=== PATIENT | female | born 1980 | race African-American/Black ===

== ENCOUNTER 2018-06-14 13:51 | Inpatient (IN) | payer OTHER, MEDICAID ==
[~2018-06-14] VITALS: Ht 163.8 cm; Wt 71.7 kg
[2018-06-14] MEDS ORDERED: ACETAMINOPHEN 325MG TABLET PO STA (15:40)
[2018-06-14] MEDS ORDERED: MORPHINE SULFATE 4 MG/ML CPJ (NOT FOR IM USE) IV STA (15:40)
[2018-06-14] MEDS ORDERED: CLINDAMYCIN 600 MG in DEXTROSE 5% WATER 50 ML IV ONE (15:45)
[2018-06-14 16:14] LABS: CHLORIDE 103 mEq/L (98-107)
[2018-06-14 16:23] LABS: MEAN CORPUSCULAR HEMOGLOBIN 16.5 pg (28.0-32.0); MEAN CORPUSCULAR VOLUME 54.9 fL (81.0-99.0); MEAN PLATELET VOLUME 8.5 fl (7.4-10.4); PARTIAL THROMBOPLASTIN TIME 36.1 sec (23.4-31.0); PLATELET 372 x1000/uL (130-400); PROTHROMBIN TIME 10.7 sec (9.6-11.0); RED CELL DISTRIBUTION WIDTH 21.9 % (11.6-14.6)
[2018-06-14 16:30] LABS: HEMATOCRIT. 20.3 % (36.0-48.0); HEMOGLOBIN. 6.1 g/dL (12.0-16.0)
[2018-06-14 16:46] LABS: PLATELET ESTIMATE NORMAL
[2018-06-14] MEDS ORDERED: ENOXAPARIN 80MG/0.8ML SYR SUBCUT NR (17:30)
[2018-06-14 18:02] LABS: CLARITY URINE CLOUDY (CLEAR); KETONES URINE 1+ (NEGATIVE); LEUKOCYTE ESTERASE URINE NEGATIVE (NEGATIVE); NITRITE URINE NEGATIVE (NEGATIVE); OCCULT BLOOD URINE TRACE (NEGATIVE); PROTEIN URINE 3+ (NEGATIVE); SPECIFIC GRAVITY URINE 1.028 (1.005-1.030)
[2018-06-14 18:03] LABS: COLOR URINE YELLOW (YELLOW)
[2018-06-14] MEDS ORDERED: ACETAMINOPHEN 325MG TABLET PO ONE (21:30)
[2018-06-14 23:41] VITALS: BP 123/72
[2018-06-15] VITALS (7 sets, daily range): BP systolic 104–130; BP diastolic 55–74
[2018-06-15] MEDS ORDERED: CLONIDINE 0.1MG TABLET PO PRN
[2018-06-15] MEDS ORDERED: ONDANSETRON HCL 4MG/2ML INJ IV PRN
[2018-06-15] MEDS ORDERED: LORAZEPAM 2MG/ML CPJ IV PRN
[2018-06-15] MEDS: HYDROCODONE/ACETAMINOPHEN 5/325MG TABLET PO PRN ×2 (00:23→09:16)
[2018-06-15 00:41] LABS: HEMATOCRIT 22.6 % (36.0-48.0)
[2018-06-15 00:44] LABS: HEMOGLOBIN 6.8 g/dL (12.0-16.0)
[2018-06-15 00:46] LABS: INR 1.1; PROTHROMBIN TIME 11.1 sec (9.6-11.0)
[2018-06-15] MEDS: THIAMINE HCL 100MG TABLET PO SCH ×2 (00:58→09:15)
[2018-06-15] MEDS: POTASSIUM CHLORIDE 20MEQ TABLET SR PO SCH ×2 (00:58→09:15)
[2018-06-15] MEDS ORDERED: VANCOMYCIN 1 G PREMIX 200 ML IV SCH ×2 (02:00)
[2018-06-15] MEDS ORDERED: NON FORMULARY PATIENT HOME MED PO PRN ×2 (05:00)
[2018-06-15] MEDS: ENOXAPARIN 80MG/0.8ML SYR SUBCUT SCH ×2 (05:08→18:17)
[2018-06-15] MEDS: ACETAMINOPHEN 325MG TABLET PO PRN ×4 (05:11→23:46)
[2018-06-15] MEDS ORDERED: ENOXAPARIN 40MG/0.4ML SYR SUBCUT SCH (09:00)
[2018-06-15] MEDS: FOLIC ACID 1MG TABLET PO SCH (09:15)
[2018-06-15] MEDS: FUROSEMIDE 40MG/4ML VIAL IV SCH ×2 (09:15→21:03)
[2018-06-15 11:46] LABS: UCG SCREEN NEGATIVE
[2018-06-15] MEDS ORDERED: INFLUENZA VIRUS VACCINE(AFLURIA) 0.5ML SYR IM ONE (12:00)
[2018-06-15 12:22] LABS: CHLORIDE 103 mEq/L (98-107)
[2018-06-15 12:27] LABS: TOTAL IRON BINDING CAPACITY 302 ug/dL (250-450)
[2018-06-15] MEDS: MORPHINE SULFATE 4 MG/ML CPJ (NOT FOR IM USE) IV PRN ×3 (13:22→23:47)
[2018-06-15] MEDS: NAFCILLIN SODIUM 1,000 MG in SODIUM CHLORIDE 0.9% 50 ML IV SCH ×3 (13:54→23:36)
[2018-06-15] MEDS ORDERED: IOHEXOL-300 100 ML BOTTLE ONE (14:39)
[2018-06-16] MEDS: THROAT LOZENGES-BENZOCAINE/MENTH/CETYLPYRD CL LOZENGES MM PRN (00:16)
[2018-06-16 04:00] VITALS: BP 106/70
[2018-06-16] MEDS: MORPHINE SULFATE 4 MG/ML CPJ (NOT FOR IM USE) IV PRN ×2 (04:07→12:44)
[2018-06-16] MEDS: ENOXAPARIN 80MG/0.8ML SYR SUBCUT SCH (05:46)
[2018-06-16] MEDS: NAFCILLIN SODIUM 1,000 MG in SODIUM CHLORIDE 0.9% 50 ML IV SCH (05:46)
[2018-06-16 06:26] LABS: HCG SCREEN NEGATIVE; HEMATOCRIT. 21.8 % (36.0-48.0); MEAN CORPUSCULAR HEMOGLOBIN 17.6 pg (28.0-32.0); MEAN CORPUSCULAR VOLUME 57.5 fL (81.0-99.0); MEAN PLATELET VOLUME 8.5 fl (7.4-10.4); PLATELET 374 x1000/uL (130-400); RED BLOOD CELL COUNT 3.78 mill/uL (4.2-5.4); RED CELL DISTRIBUTION WIDTH 24.6 % (11.6-14.6)
[2018-06-16 06:29] LABS: CHLORIDE 100 mEq/L (98-107)
[2018-06-16 06:40] LABS: HEMOGLOBIN. 6.7 g/dL (12.0-16.0)
[2018-06-16 08:00] VITALS: BP 112/69
[2018-06-16] MEDS ORDERED: POTASSIUM CHLORIDE 20MEQ TABLET SR PO SCH (09:00)
[2018-06-16] MEDS: FUROSEMIDE 40MG/4ML VIAL IV SCH (09:02)
[2018-06-16] MEDS: FOLIC ACID 1MG TABLET PO SCH (09:03)
[2018-06-16] MEDS: THIAMINE HCL 100MG TABLET PO SCH (09:03)
[2018-06-16] MEDS: POTASSIUM CHLORIDE 20MEQ TABLET SR PO SCH (09:03)
[2018-06-16] MEDS: IRON SUCROSE COMPLEX 100 MG/5 ML ML IV SCH (11:31)
[2018-06-16 12:00] VITALS: BP 118/75
[2018-06-16] MEDS: CLINDAMYCIN 600MG PREMIX 50 ML IV SCH ×2 (12:44→23:29)
[2018-06-16] MEDS ORDERED: VANCOMYCIN 1500MG in DEXTROSE 5% WATER 250ML IV NR (13:00)
[2018-06-16] MEDS: CEFTRIAXONE 2 G in DEXTROSE 5% WATER 50 ML IV SCH (13:29)
[2018-06-16 14:48] LABS: PLATELET ESTIMATE NORMAL
[2018-06-16] MEDS: ACETAMINOPHEN 325MG TABLET PO PRN ×2 (15:26→21:22)
[2018-06-16 16:00] VITALS: BP 104/53
[2018-06-16] MEDS: APIXABAN 5 MG TABLET PO SCH (18:31)
[2018-06-16 20:00] VITALS: BP 117/69
[2018-06-16] MEDS: HYDROCODONE/ACETAMINOPHEN 5/325MG TABLET PO PRN (21:31)
[2018-06-17] VITALS: BP_SYST 117
[2018-06-17] MEDS: VANCOMYCIN 1 G PREMIX 200 ML IV SCH ×2 (02:02→14:09)
[2018-06-17 04:00] VITALS: BP 118/70
[2018-06-17] MEDS: CLINDAMYCIN 600MG PREMIX 50 ML IV SCH ×2 (05:47→15:55)
[2018-06-17] MEDS: MORPHINE SULFATE 4 MG/ML CPJ (NOT FOR IM USE) IV PRN ×3 (05:47→15:58)
[2018-06-17 08:00] VITALS: BP 128/66
[2018-06-17] MEDS: APIXABAN 5 MG TABLET PO SCH ×2 (10:20→18:36)
[2018-06-17] MEDS: FUROSEMIDE 40MG/4ML VIAL IV SCH (10:20)
[2018-06-17] MEDS: IRON SUCROSE COMPLEX 100 MG/5 ML ML IV SCH (10:22)
[2018-06-17] MEDS: FOLIC ACID 1MG TABLET PO SCH (10:22)
[2018-06-17] MEDS: POTASSIUM CHLORIDE 20MEQ TABLET SR PO SCH (10:22)
[2018-06-17] MEDS: THIAMINE HCL 100MG TABLET PO SCH (10:22)
[2018-06-17 12:15] VITALS: BP 115/80
[2018-06-17] MEDS: CEFTRIAXONE 2 G in DEXTROSE 5% WATER 50 ML IV SCH (13:17)
[2018-06-17 15:55] VITALS: BP 120/71
[2018-06-17 18:57] LABS: HEMATOCRIT 22.2 % (36.0-48.0)
[2018-06-17 19:06] LABS: HEMOGLOBIN 6.8 g/dL (12.0-16.0)
[2018-06-17 20:00] VITALS: BP 112/68
[2018-06-17] MEDS: ACETAMINOPHEN 325MG TABLET PO PRN (21:42)
[2018-06-18] VITALS (9 sets, daily range): BP systolic 105–139; BP diastolic 58–95
[2018-06-18] MEDS: CLINDAMYCIN 600MG PREMIX 50 ML IV SCH ×4 (00:06→21:42)
[2018-06-18] MEDS: VANCOMYCIN 1 G PREMIX 200 ML IV SCH ×2 (01:43→14:11)
[2018-06-18 03:47] LABS: CHLORIDE 101 mEq/L (98-107)
[2018-06-18 03:50] LABS: HEMATOCRIT. 21.2 % (36.0-48.0); MEAN CORPUSCULAR HEMOGLOBIN 17.9 pg (28.0-32.0); MEAN CORPUSCULAR VOLUME 57.3 fL (81.0-99.0); MEAN PLATELET VOLUME 8.9 fl (7.4-10.4); PLATELET 487 x1000/uL (130-400); RED CELL DISTRIBUTION WIDTH 24.7 % (11.6-14.6)
[2018-06-18] MEDS: MORPHINE SULFATE 4 MG/ML CPJ (NOT FOR IM USE) IV PRN (03:50)
[2018-06-18 03:53] LABS: PHOSPHORUS 3.2 mg/dL (2.5-4.9)
[2018-06-18 03:59] LABS: HEMOGLOBIN. 6.6 g/dL (12.0-16.0)
[2018-06-18] MEDS: ACETAMINOPHEN 325MG TABLET PO PRN ×2 (04:06→18:03)
[2018-06-18 06:58] LABS: PLATELET ESTIMATE SLIGHTLY INCREASED
[2018-06-18 08:13] LABS: COMPLEMENT C3 212 mg/dL (82-167)
[2018-06-18] MEDS: POTASSIUM CHLORIDE 20MEQ TABLET SR PO SCH (08:24)
[2018-06-18] MEDS: APIXABAN 5 MG TABLET PO SCH ×2 (08:24→17:15)
[2018-06-18] MEDS: FOLIC ACID 1MG TABLET PO SCH (08:24)
[2018-06-18] MEDS: FUROSEMIDE 40MG/4ML VIAL IV SCH (08:24)
[2018-06-18] MEDS: THIAMINE HCL 100MG TABLET PO SCH (08:24)
[2018-06-18] MEDS: IRON SUCROSE COMPLEX 100 MG/5 ML ML IV SCH (08:24)
[2018-06-18] MEDS: CEFTRIAXONE 2 G in DEXTROSE 5% WATER 50 ML IV SCH (12:46)
[2018-06-18] MEDS ORDERED: IOHEXOL-300 100 ML BOTTLE ONE (15:57)
[2018-06-18] MEDS ORDERED: DIPHENHYDRAMINE 50MG/ML VIAL IV NR (17:20)
[2018-06-19] VITALS: BP 141/85
[2018-06-19] MEDS: VANCOMYCIN 1250MG in DEXTROSE 5% WATER 250ML IV SCH ×3 (00:05→22:07)
[2018-06-19] MEDS: MORPHINE SULFATE 4 MG/ML CPJ (NOT FOR IM USE) IV PRN ×4 (00:10→22:09)
[2018-06-19 04:00] VITALS: BP 118/79
[2018-06-19] MEDS: CLINDAMYCIN 600MG PREMIX 50 ML IV SCH ×3 (06:28→22:26)
[2018-06-19 06:39] LABS: BASOPHILS % 0.8 % (0.0-2.0); EOSINOPHILS % 0.5 % (0.0-5.0); HEMATOCRIT. 23.5 % (36.0-48.0); HEMOGLOBIN. 7.5 g/dL (12.0-16.0); LYMPHOCYTES % 29.2 % (20.0-50.0); MEAN CORPUSCULAR HEMOGLOBIN 19.4 pg (28.0-32.0); MEAN CORPUSCULAR VOLUME 60.7 fL (81.0-99.0); MEAN PLATELET VOLUME 8.5 fl (7.4-10.4); MONOCYTES % 4.8 % (2.0-8.0); NEUTROPHILS % 64.7 % (40.0-76.0); PLATELET 612 x1000/uL (130-400); RED BLOOD CELL COUNT 3.88 mill/uL (4.2-5.4); RED CELL DISTRIBUTION WIDTH 30.7 % (11.6-14.6)
[2018-06-19 07:08] LABS: CHLORIDE 101 mEq/L (98-107)
[2018-06-19 08:00] VITALS: BP 111/73
[2018-06-19] MEDS: APIXABAN 5 MG TABLET PO SCH ×2 (09:01→17:26)
[2018-06-19] MEDS: THIAMINE HCL 100MG TABLET PO SCH (09:01)
[2018-06-19] MEDS: IRON SUCROSE COMPLEX 100 MG/5 ML ML IV SCH (09:01)
[2018-06-19] MEDS: POTASSIUM CHLORIDE 20MEQ TABLET SR PO SCH (09:01)
[2018-06-19 12:00] VITALS: BP 117/76
[2018-06-19] MEDS: CEFTRIAXONE 2 G in DEXTROSE 5% WATER 50 ML IV SCH (12:25)
[2018-06-19 16:00] VITALS: BP 116/72
[2018-06-19 20:00] VITALS: BP 126/78
[2018-06-20] VITALS: BP 118/74
[2018-06-20 04:00] VITALS: BP 120/82
[2018-06-20] MEDS: CLINDAMYCIN 600MG PREMIX 50 ML IV SCH ×3 (07:12→23:06)
[2018-06-20] MEDS: MORPHINE SULFATE 4 MG/ML CPJ (NOT FOR IM USE) IV PRN ×4 (07:21→21:44)
[2018-06-20 08:00] VITALS: BP 126/88
[2018-06-20] MEDS: THIAMINE HCL 100MG TABLET PO SCH (09:18)
[2018-06-20] MEDS: APIXABAN 5 MG TABLET PO SCH ×2 (09:18→17:04)
[2018-06-20] MEDS: POTASSIUM CHLORIDE 20MEQ TABLET SR PO SCH (09:18)
[2018-06-20] MEDS: VANCOMYCIN 1250MG in DEXTROSE 5% WATER 250ML IV SCH ×2 (09:18→21:43)
[2018-06-20] MEDS: IRON SUCROSE COMPLEX 100 MG/5 ML ML IV SCH (09:18)
[2018-06-20] MEDS: THROAT LOZENGES-BENZOCAINE/MENTH/CETYLPYRD CL LOZENGES MM PRN (09:25)
[2018-06-20 12:00] VITALS: BP 122/79
[2018-06-20] MEDS: ACETAMINOPHEN 325MG TABLET PO PRN (12:05)
[2018-06-20] MEDS: CEFTRIAXONE 2 G in DEXTROSE 5% WATER 50 ML IV SCH (12:14)
[2018-06-20 16:00] VITALS: BP 125/75
[2018-06-20 20:00] VITALS: BP 115/80
[2018-06-21] VITALS: BP 110/59
[2018-06-21] MEDS: MORPHINE SULFATE 4 MG/ML CPJ (NOT FOR IM USE) IV PRN ×4 (02:49→21:31)
[2018-06-21 04:00] VITALS: BP 108/67
[2018-06-21] MEDS: CLINDAMYCIN 600MG PREMIX 50 ML IV SCH ×3 (06:21→23:39)
[2018-06-21 06:38] LABS: HEMATOCRIT. 25.3 % (36.0-48.0); HEMOGLOBIN. 7.8 g/dL (12.0-16.0); MEAN CORPUSCULAR HEMOGLOBIN 19.7 pg (28.0-32.0); MEAN CORPUSCULAR VOLUME 64.1 fL (81.0-99.0); MEAN PLATELET VOLUME 8.7 fl (7.4-10.4); PLATELET 708 x1000/uL (130-400); RED BLOOD CELL COUNT 3.95 mill/uL (4.2-5.4); RED CELL DISTRIBUTION WIDTH 32.9 % (11.6-14.6)
[2018-06-21 07:40] LABS: CHLORIDE 104 mEq/L (98-107)
[2018-06-21 07:45] LABS: PLATELET ESTIMATE INCREASED
[2018-06-21 08:00] VITALS: BP 107/67
[2018-06-21] MEDS: APIXABAN 5 MG TABLET PO SCH ×2 (08:44→17:28)
[2018-06-21] MEDS: VANCOMYCIN 1250MG in DEXTROSE 5% WATER 250ML IV SCH ×2 (08:44→21:33)
[2018-06-21] MEDS: POTASSIUM CHLORIDE 20MEQ TABLET SR PO SCH (08:45)
[2018-06-21] MEDS: THIAMINE HCL 100MG TABLET PO SCH (08:45)
[2018-06-21] MEDS: IRON SUCROSE COMPLEX 100 MG/5 ML ML IV SCH (08:45)
[2018-06-21 12:00] VITALS: BP 127/78
[2018-06-21] MEDS: CEFTRIAXONE 2 G in DEXTROSE 5% WATER 50 ML IV SCH (13:14)
[2018-06-21 16:00] VITALS: BP 120/72
[2018-06-21] MEDS ORDERED: IBUP-2271 MT (17:11)
[2018-06-21 20:00] VITALS: BP 119/71
[2018-06-22] VITALS (7 sets, daily range): BP systolic 104–143; BP diastolic 58–92
[2018-06-22] MEDS: MORPHINE SULFATE 4 MG/ML CPJ (NOT FOR IM USE) IV PRN ×4 (04:28→21:28)
[2018-06-22] MEDS: CLINDAMYCIN 600MG PREMIX 50 ML IV SCH ×3 (05:35→23:05)
[2018-06-22 06:14] LABS: HEMATOCRIT. 24.2 % (36.0-48.0); HEMOGLOBIN. 7.5 g/dL (12.0-16.0); MEAN CORPUSCULAR HEMOGLOBIN 19.7 pg (28.0-32.0); MEAN PLATELET VOLUME 8.5 fl (7.4-10.4); PLATELET 741 x1000/uL (130-400); RED BLOOD CELL COUNT 3.79 mill/uL (4.2-5.4)
[2018-06-22 06:46] LABS: CHLORIDE 103 mEq/L (98-107)
[2018-06-22] MEDS: APIXABAN 5 MG TABLET PO SCH ×2 (09:08→17:19)
[2018-06-22] MEDS: VANCOMYCIN 1250MG in DEXTROSE 5% WATER 250ML IV SCH ×2 (09:08→21:28)
[2018-06-22] MEDS: THIAMINE HCL 100MG TABLET PO SCH (09:08)
[2018-06-22] MEDS: POTASSIUM CHLORIDE 20MEQ TABLET SR PO SCH (09:08)
[2018-06-22] MEDS: IRON SUCROSE COMPLEX 100 MG/5 ML ML IV SCH (09:09)
[2018-06-22 11:22] LABS: PLATELET ESTIMATE INCREASED
[2018-06-22] MEDS: CEFTRIAXONE 2 G in DEXTROSE 5% WATER 50 ML IV SCH (13:12)
[2018-06-22] MEDS: ACETAMINOPHEN 325MG TABLET PO PRN ×2 (13:22→22:15)
[2018-06-23] VITALS: BP 110/70
[2018-06-23 04:00] VITALS: BP 117/72
[2018-06-23] MEDS: MORPHINE SULFATE 4 MG/ML CPJ (NOT FOR IM USE) IV PRN ×3 (04:48→22:06)
[2018-06-23] MEDS: CLINDAMYCIN 600MG PREMIX 50 ML IV SCH (05:58)
[2018-06-23 06:58] LABS: CHLORIDE 104 mEq/L (98-107)
[2018-06-23 07:06] LABS: HEMATOCRIT. 25.9 % (36.0-48.0); MEAN CORPUSCULAR VOLUME 64.8 fL (81.0-99.0); MEAN PLATELET VOLUME 8.7 fl (7.4-10.4); PLATELET 832 x1000/uL (130-400); RED CELL DISTRIBUTION WIDTH 34.6 % (11.6-14.6)
[2018-06-23 08:00] VITALS: BP 120/86
[2018-06-23 09:10] LABS: PLATELET ESTIMATE MARKEDLY INCREASED
[2018-06-23] MEDS: APIXABAN 5 MG TABLET PO SCH ×2 (09:31→17:16)
[2018-06-23] MEDS: VANCOMYCIN 1250MG in DEXTROSE 5% WATER 250ML IV SCH (09:31)
[2018-06-23] MEDS: THIAMINE HCL 100MG TABLET PO SCH (09:31)
[2018-06-23] MEDS: IRON SUCROSE COMPLEX 100 MG/5 ML ML IV SCH (09:31)
[2018-06-23] MEDS: POTASSIUM CHLORIDE 20MEQ TABLET SR PO SCH (09:31)
[2018-06-23] MEDS: ACETAMINOPHEN 325MG TABLET PO PRN ×2 (09:58→22:16)
[2018-06-23 11:26] LABS: TOTAL IRON BINDING CAPACITY 236 ug/dL (250-450)
[2018-06-23 12:00] VITALS: BP 124/80
[2018-06-23] MEDS: CEFTRIAXONE 2 G in DEXTROSE 5% WATER 50 ML IV SCH (12:37)
[2018-06-23] MEDS: CEFAZOLIN 1000MG PREMIX 50 ML IV SCH ×2 (15:33→21:57)
[2018-06-23 16:00] VITALS: BP 128/78
[2018-06-23 20:00] VITALS: BP 113/76
[2018-06-24] VITALS: BP 113/61
[2018-06-24 04:00] VITALS: BP 110/54
[2018-06-24] MEDS: CEFAZOLIN 1000MG PREMIX 50 ML IV SCH ×3 (06:15→21:29)
[2018-06-24 08:00] VITALS: BP 114/68
[2018-06-24] MEDS: IRON SUCROSE COMPLEX 100 MG/5 ML ML IV SCH (09:34)
[2018-06-24] MEDS: APIXABAN 5 MG TABLET PO SCH (09:34)
[2018-06-24] MEDS: THIAMINE HCL 100MG TABLET PO SCH (09:34)
[2018-06-24] MEDS: POTASSIUM CHLORIDE 20MEQ TABLET SR PO SCH (09:34)
[2018-06-24] MEDS: MORPHINE SULFATE 4 MG/ML CPJ (NOT FOR IM USE) IV PRN ×2 (10:11→21:35)
[2018-06-24 12:00] VITALS: BP 126/87
[2018-06-24 16:00] VITALS: BP 117/72
[2018-06-24 20:00] VITALS: BP 113/63
[2018-06-24] MEDS: ACETAMINOPHEN 325MG TABLET PO PRN (23:46)
[2018-06-25] VITALS: BP 142/86
[2018-06-25 04:00] VITALS: BP 118/79
[2018-06-25] MEDS: CEFAZOLIN 1000MG PREMIX 50 ML IV SCH ×3 (05:38→23:36)
[2018-06-25 06:07] LABS: HEMATOCRIT. 26.9 % (36.0-48.0); HEMOGLOBIN. 8.3 g/dL (12.0-16.0); MEAN CORPUSCULAR HEMOGLOBIN 20.4 pg (28.0-32.0); MEAN CORPUSCULAR VOLUME 66.6 fL (81.0-99.0); MEAN PLATELET VOLUME 8.6 fl (7.4-10.4); PLATELET 898 x1000/uL (130-400); RED BLOOD CELL COUNT 4.04 mill/uL (4.2-5.4); RED CELL DISTRIBUTION WIDTH 35.2 % (11.6-14.6)
[2018-06-25 06:56] LABS: CHLORIDE 106 mEq/L (98-107)
[2018-06-25 08:04] VITALS: BP 110/75
[2018-06-25] MEDS: THIAMINE HCL 100MG TABLET PO SCH (08:28)
[2018-06-25] MEDS: IRON SUCROSE COMPLEX 100 MG/5 ML ML IV SCH (08:28)
[2018-06-25] MEDS: MORPHINE SULFATE 4 MG/ML CPJ (NOT FOR IM USE) IV PRN ×2 (09:01→21:06)
[2018-06-25 12:00] VITALS: BP 109/74
[2018-06-25 15:33] LABS: PLATELET ESTIMATE INCREASED
[2018-06-25 16:00] VITALS: BP 120/79
[2018-06-25] MEDS ORDERED: MEDROXYPROGESTERONE ACETATE 150MG/ML VIAL IM NR (18:00)
[2018-06-25] MEDS: ACETAMINOPHEN 325MG TABLET PO PRN (18:26)
[2018-06-25 20:00] VITALS: BP 126/85
[2018-06-26] VITALS: BP 114/71
[2018-06-26 04:00] VITALS: BP 117/75
[2018-06-26] MEDS: CEFAZOLIN 1000MG PREMIX 50 ML IV SCH ×3 (05:31→22:32)
[2018-06-26 08:00] VITALS: BP 114/72
[2018-06-26] MEDS: THIAMINE HCL 100MG TABLET PO SCH (10:27)
[2018-06-26 12:00] VITALS: BP 141/94
[2018-06-26] MEDS: MORPHINE SULFATE 4 MG/ML CPJ (NOT FOR IM USE) IV PRN ×2 (12:01→20:40)
[2018-06-26] MEDS: ACETAMINOPHEN 325MG TABLET PO PRN (13:12)
[2018-06-26 16:00] VITALS: BP 123/91
[2018-06-26 20:00] VITALS: BP 124/80
[2018-06-27] VITALS: BP 118/83
[2018-06-27] MEDS: MORPHINE SULFATE 4 MG/ML CPJ (NOT FOR IM USE) IV PRN (01:42)
[2018-06-27 04:00] VITALS: BP 118/78
[2018-06-27] MEDS: CEFAZOLIN 1000MG PREMIX 50 ML IV SCH ×3 (05:27→21:19)
[2018-06-27 08:00] VITALS: BP 118/80
[2018-06-27] MEDS: THIAMINE HCL 100MG TABLET PO SCH (09:31)
[2018-06-27 12:00] VITALS: BP 107/65
[2018-06-27 16:00] VITALS: BP 126/83
[2018-06-27 20:00] VITALS: BP 121/81
[2018-06-27] MEDS: ACETAMINOPHEN 325MG TABLET PO PRN (21:26)
[2018-06-28] VITALS: BP 108/82
[2018-06-28 04:00] VITALS: BP 132/87
[2018-06-28] MEDS: CEFAZOLIN 1000MG PREMIX 50 ML IV SCH ×3 (05:35→22:05)
[2018-06-28 06:46] LABS: HEMATOCRIT. 26.7 % (36.0-48.0); HEMOGLOBIN. 8.3 g/dL (12.0-16.0); MEAN CORPUSCULAR VOLUME 67.4 fL (81.0-99.0); PLATELET 820 x1000/uL (130-400); RED BLOOD CELL COUNT 3.96 mill/uL (4.2-5.4); RED CELL DISTRIBUTION WIDTH 36.2 % (11.6-14.6)
[2018-06-28 07:38] LABS: CHLORIDE 104 mEq/L (98-107)
[2018-06-28 08:00] VITALS: BP 123/73
[2018-06-28] MEDS: THIAMINE HCL 100MG TABLET PO SCH (09:01)
[2018-06-28 09:13] LABS: PLATELET ESTIMATE INCREASED
[2018-06-28] MEDS: ACETAMINOPHEN 325MG TABLET PO PRN ×2 (09:50→20:32)
[2018-06-28 16:00] VITALS: BP 101/63
[2018-06-28 19:50] VITALS: BP 132/89
[2018-06-29] VITALS: BP 116/79
[2018-06-29 04:00] VITALS: BP 115/67
[2018-06-29] MEDS: CEFAZOLIN 1000MG PREMIX 50 ML IV SCH ×3 (05:51→22:06)
[2018-06-29 08:00] VITALS: BP 98/60
[2018-06-29] MEDS: THIAMINE HCL 100MG TABLET PO SCH (08:39)
[2018-06-29 12:00] VITALS: BP 103/63
[2018-06-29 16:00] VITALS: BP 104/67
[2018-06-29 20:00] VITALS: BP 140/98
[2018-06-30] VITALS: BP 108/72
[2018-06-30 04:00] VITALS: BP 118/76
[2018-06-30] MEDS: CEFAZOLIN 1000MG PREMIX 50 ML IV SCH ×4 (05:06→21:04)
[2018-06-30 08:00] VITALS: BP 106/58
[2018-06-30] MEDS: THIAMINE HCL 100MG TABLET PO SCH (08:41)
[2018-06-30 12:00] VITALS: BP 110/75
[2018-06-30 16:00] VITALS: BP 123/76
[2018-06-30 20:00] VITALS: BP 107/79
[2018-06-30] MEDS ORDERED: CEFAZOLIN SODIUM 1000MG/VIAL IV SCH (22:00)
[2018-07-01] VITALS: BP 106/78
[2018-07-01 04:00] VITALS: BP 129/75
[2018-07-01] MEDS: CEFAZOLIN 1000MG PREMIX 50 ML IV SCH ×3 (05:13→21:49)
[2018-07-01 06:37] LABS: HEMATOCRIT. 27.9 % (36.0-48.0); HEMOGLOBIN. 8.7 g/dL (12.0-16.0); MEAN CORPUSCULAR HEMOGLOBIN 21.7 pg (28.0-32.0); MEAN CORPUSCULAR VOLUME 69.2 fL (81.0-99.0); MEAN PLATELET VOLUME 8.5 fl (7.4-10.4); PLATELET 609 x1000/uL (130-400); RED BLOOD CELL COUNT 4.04 mill/uL (4.2-5.4); RED CELL DISTRIBUTION WIDTH 36.5 % (11.6-14.6)
[2018-07-01 07:11] LABS: CHLORIDE 106 mEq/L (98-107)
[2018-07-01 08:00] VITALS: BP 118/71
[2018-07-01] MEDS: THIAMINE HCL 100MG TABLET PO SCH (09:17)
[2018-07-01 12:00] VITALS: BP 104/62
[2018-07-01 12:22] LABS: PLATELET ESTIMATE MARKEDLY INCREASED
[2018-07-01] MEDS ORDERED: LIDOCAINE HCL/EPINEPHRINE 1%-EPI 1:100,000 20 ML VIAL INFIL NR (14:00)
[2018-07-01 16:00] VITALS: BP 116/82
[2018-07-01 20:00] VITALS: BP 132/82
[2018-07-02] VITALS: BP 120/84
[2018-07-02 04:00] VITALS: BP 110/74
[2018-07-02] MEDS: CEFAZOLIN 1000MG PREMIX 50 ML IV SCH ×3 (05:07→22:44)
[2018-07-02 08:00] VITALS: BP 117/83
[2018-07-02] MEDS: THIAMINE HCL 100MG TABLET PO SCH (09:21)
[2018-07-02 12:00] VITALS: BP 114/73
[2018-07-02] MEDS: ACETAMINOPHEN 325MG TABLET PO PRN (15:47)
[2018-07-02 16:05] VITALS: BP 116/84
[2018-07-02] MEDS: FERROUS SULFATE 325MG TABLET PO SCH (17:38)
[2018-07-02 20:00] VITALS: BP 128/93
[2018-07-03] VITALS: BP 115/65
[2018-07-03 04:00] VITALS: BP 102/58
[2018-07-03] MEDS: CEFAZOLIN 1000MG PREMIX 50 ML IV SCH ×3 (06:10→21:25)
[2018-07-03 08:00] VITALS: BP 104/78
[2018-07-03] MEDS: FERROUS SULFATE 325MG TABLET PO SCH ×3 (08:43→18:41)
[2018-07-03] MEDS: ZINC SULFATE 220 MG ( 50 ) CAPSULE PO SCH (08:44)
[2018-07-03] MEDS: THIAMINE HCL 100MG TABLET PO SCH (08:44)
[2018-07-03 12:00] VITALS: BP 108/64
[2018-07-03] MEDS: ACETAMINOPHEN 325MG TABLET PO PRN (14:01)
[2018-07-03 16:00] VITALS: BP 113/75
[2018-07-03] MEDS: MORPHINE SULFATE 4 MG/ML CPJ (NOT FOR IM USE) IV PRN (17:05)
[2018-07-03 20:00] VITALS: BP 118/70
[2018-07-04] VITALS: BP 125/84
[2018-07-04 04:00] VITALS: BP 101/65
[2018-07-04] MEDS: CEFAZOLIN 1000MG PREMIX 50 ML IV SCH ×3 (06:00→21:00)
[2018-07-04] MEDS: MORPHINE SULFATE 4 MG/ML CPJ (NOT FOR IM USE) IV PRN ×4 (06:07→22:21)
[2018-07-04 06:37] LABS: HEMATOCRIT. 29.4 % (36.0-48.0); HEMOGLOBIN. 9.3 g/dL (12.0-16.0); MEAN CORPUSCULAR HEMOGLOBIN 22.4 pg (28.0-32.0); MEAN CORPUSCULAR VOLUME 70.8 fL (81.0-99.0); MEAN PLATELET VOLUME 8.5 fl (7.4-10.4); PLATELET 460 x1000/uL (130-400); RED BLOOD CELL COUNT 4.15 mill/uL (4.2-5.4); RED CELL DISTRIBUTION WIDTH 36.2 % (11.6-14.6)
[2018-07-04 06:56] LABS: CHLORIDE 107 mEq/L (98-107)
[2018-07-04 08:00] VITALS: BP 110/60
[2018-07-04] MEDS: ZINC SULFATE 220 MG ( 50 ) CAPSULE PO SCH (08:45)
[2018-07-04] MEDS: THIAMINE HCL 100MG TABLET PO SCH (08:45)
[2018-07-04] MEDS: FERROUS SULFATE 325MG TABLET PO SCH ×3 (08:45→17:02)
[2018-07-04 12:00] VITALS: BP 120/59
[2018-07-04] MEDS: ACETAMINOPHEN 325MG TABLET PO PRN (12:13)
[2018-07-04 16:00] VITALS: BP 104/65
[2018-07-04 17:36] LABS: PLATELET ESTIMATE INCREASED
[2018-07-04 20:00] VITALS: BP 130/91
[2018-07-05] VITALS: BP 104/63
[2018-07-05 04:00] VITALS: BP 102/70
[2018-07-05] MEDS: CEFAZOLIN 1000MG PREMIX 50 ML IV SCH ×3 (05:30→21:46)
[2018-07-05] MEDS: MORPHINE SULFATE 4 MG/ML CPJ (NOT FOR IM USE) IV PRN ×4 (05:31→21:51)
[2018-07-05 08:00] VITALS: BP 96/61
[2018-07-05] MEDS: THIAMINE HCL 100MG TABLET PO SCH (09:02)
[2018-07-05] MEDS: ZINC SULFATE 220 MG ( 50 ) CAPSULE PO SCH (09:02)
[2018-07-05] MEDS: FERROUS SULFATE 325MG TABLET PO SCH ×3 (09:02→17:35)
[2018-07-05 12:00] VITALS: BP 125/66
[2018-07-05 16:00] VITALS: BP 110/78
[2018-07-06] VITALS: BP 117/80
[2018-07-06] MEDS: MORPHINE SULFATE 4 MG/ML CPJ (NOT FOR IM USE) IV PRN ×3 (02:16→22:00)
[2018-07-06 04:00] VITALS: BP 100/60
[2018-07-06] MEDS: CEFAZOLIN 1000MG PREMIX 50 ML IV SCH ×3 (05:22→22:01)
[2018-07-06 08:00] VITALS: BP 115/74
[2018-07-06] MEDS: THIAMINE HCL 100MG TABLET PO SCH (08:14)
[2018-07-06] MEDS: FERROUS SULFATE 325MG TABLET PO SCH ×3 (08:14→18:10)
[2018-07-06] MEDS: ZINC SULFATE 220 MG ( 50 ) CAPSULE PO SCH (08:14)
[2018-07-06 11:34] VITALS: BP 102/62
[2018-07-06 16:00] VITALS: BP 96/67
[2018-07-06 20:00] VITALS: BP 113/69
[2018-07-07] VITALS (7 sets, daily range): BP systolic 99–117; BP diastolic 54–74
[2018-07-07] MEDS: CEFAZOLIN 1000MG PREMIX 50 ML IV SCH ×2 (05:53→13:11)
[2018-07-07 06:50] LABS: HEMOGLOBIN. 9.7 g/dL (12.0-16.0); MEAN CORPUSCULAR HEMOGLOBIN 22.4 pg (28.0-32.0); MEAN CORPUSCULAR VOLUME 71.2 fL (81.0-99.0); MEAN PLATELET VOLUME 8.5 fl (7.4-10.4); PLATELET 359 x1000/uL (130-400); RED BLOOD CELL COUNT 4.35 mill/uL (4.2-5.4); RED CELL DISTRIBUTION WIDTH 35.8 % (11.6-14.6)
[2018-07-07 08:04] LABS: CHLORIDE 107 mEq/L (98-107)
[2018-07-07] MEDS: FERROUS SULFATE 325MG TABLET PO SCH ×3 (09:09→17:25)
[2018-07-07] MEDS: ZINC SULFATE 220 MG ( 50 ) CAPSULE PO SCH (09:09)
[2018-07-07] MEDS: THIAMINE HCL 100MG TABLET PO SCH (09:10)
[2018-07-07] MEDS: MORPHINE SULFATE 4 MG/ML CPJ (NOT FOR IM USE) IV PRN ×2 (10:08→14:36)
[2018-07-07 11:03] LABS: PLATELET ESTIMATE NORMAL
[2018-07-07] MEDS: ACETAMINOPHEN 325MG TABLET PO PRN (17:28)
[2018-07-08] MEDS: ACETAMINOPHEN 325MG TABLET PO PRN ×2 (01:07→21:09)
[2018-07-08 04:00] VITALS: BP 95/54
[2018-07-08 08:00] VITALS: BP 110/72
[2018-07-08] MEDS: THIAMINE HCL 100MG TABLET PO SCH (08:48)
[2018-07-08] MEDS: FERROUS SULFATE 325MG TABLET PO SCH ×3 (08:48→17:04)
[2018-07-08] MEDS: ZINC SULFATE 220 MG ( 50 ) CAPSULE PO SCH (08:48)
[2018-07-08] MEDS: MORPHINE SULFATE 4 MG/ML CPJ (NOT FOR IM USE) IV PRN (08:49)
[2018-07-08 12:00] VITALS: BP 126/88
[2018-07-08 16:00] VITALS: BP 123/82
[2018-07-08 20:00] VITALS: BP 114/65
[2018-07-08] MEDS: CEPHALEXIN 250MG CAPSULE PO SCH (21:09)
[2018-07-09 04:00] VITALS: BP 117/83
[2018-07-09] MEDS: CEPHALEXIN 250MG CAPSULE PO SCH (05:45)
[2018-07-09 07:56] VITALS: BP 112/73
[2018-07-09] MEDS: THIAMINE HCL 100MG TABLET PO SCH (09:19)
[2018-07-09] MEDS: FERROUS SULFATE 325MG TABLET PO SCH ×3 (09:19→17:40)
[2018-07-09] MEDS: ZINC SULFATE 220 MG ( 50 ) CAPSULE PO SCH (09:20)
[2018-07-09] MEDS: ACETAMINOPHEN 325MG TABLET PO PRN (11:05)
[2018-07-09 12:00] VITALS: BP 120/70
[2018-07-09] MEDS: HYDROCODONE/ACETAMINOPHEN 5/325MG TABLET PO PRN ×2 (12:50→22:16)
[2018-07-09 15:48] VITALS: BP 108/70
[2018-07-09] MEDS: APIXABAN 5 MG TABLET PO SCH (17:00)
[2018-07-09 20:00] VITALS: BP 112/78
[2018-07-09] MEDS: LACTULOSE 20G/30ML UDC PO SCH (23:00)
[2018-07-10] VITALS: BP 127/87
[2018-07-10 04:00] VITALS: BP 127/79
[2018-07-10] MEDS: LACTULOSE 20G/30ML UDC PO SCH ×2 (06:00→12:10)
[2018-07-10 08:00] VITALS: BP 112/78
[2018-07-10] MEDS: ZINC SULFATE 220 MG ( 50 ) CAPSULE PO SCH (09:27)
[2018-07-10] MEDS: FERROUS SULFATE 325MG TABLET PO SCH ×3 (09:27→16:50)
[2018-07-10] MEDS: APIXABAN 5 MG TABLET PO SCH ×2 (09:27→16:49)
[2018-07-10] MEDS: THIAMINE HCL 100MG TABLET PO SCH (09:28)
[2018-07-10 12:00] VITALS: BP 122/89
[2018-07-10 16:00] VITALS: BP 103/66
[2018-07-10] MEDS: HYDROCODONE/ACETAMINOPHEN 5/325MG TABLET PO PRN (16:49)
[2018-07-10 20:00] VITALS: BP 111/71
[2018-07-11] VITALS: BP 118/80
[2018-07-11] MEDS: LACTULOSE 20G/30ML UDC PO SCH ×5 (00:05→23:03)
[2018-07-11 04:00] VITALS: BP 114/79
[2018-07-11] MEDS: FERROUS SULFATE 325MG TABLET PO SCH ×3 (07:50→16:50)
[2018-07-11 08:00] VITALS: BP 98/65
[2018-07-11] MEDS: APIXABAN 5 MG TABLET PO SCH ×2 (09:18→16:52)
[2018-07-11] MEDS: THIAMINE HCL 100MG TABLET PO SCH (09:19)
[2018-07-11] MEDS: ZINC SULFATE 220 MG ( 50 ) CAPSULE PO SCH (09:19)
[2018-07-11 12:00] VITALS: BP 102/69
[2018-07-11 16:00] VITALS: BP 98/57
[2018-07-11 20:00] VITALS: BP_SYST 106; BP_SYST 117; BP_DIAS 60; BP_DIAS 80
[2018-07-12 04:00] VITALS: BP 101/68
[2018-07-12] MEDS: LACTULOSE 20G/30ML UDC PO SCH ×4 (05:26→23:14)
[2018-07-12 08:00] VITALS: BP 108/71
[2018-07-12 08:26] LABS: HEMATOCRIT. 33.5 % (36.0-48.0); HEMOGLOBIN. 10.5 g/dL (12.0-16.0); MEAN CORPUSCULAR HEMOGLOBIN 23.2 pg (28.0-32.0); MEAN CORPUSCULAR VOLUME 73.7 fL (81.0-99.0); MEAN PLATELET VOLUME 8.5 fl (7.4-10.4); PLATELET 323 x1000/uL (130-400); RED BLOOD CELL COUNT 4.55 mill/uL (4.2-5.4); RED CELL DISTRIBUTION WIDTH 34.1 % (11.6-14.6)
[2018-07-12 08:36] LABS: CHLORIDE 106 mEq/L (98-107)
[2018-07-12 08:42] LABS: PHOSPHORUS 4.8 mg/dL (2.5-4.9)
[2018-07-12] MEDS: FERROUS SULFATE 325MG TABLET PO SCH ×3 (08:42→17:38)
[2018-07-12] MEDS: THIAMINE HCL 100MG TABLET PO SCH (08:42)
[2018-07-12] MEDS: APIXABAN 5 MG TABLET PO SCH ×2 (08:42→17:38)
[2018-07-12] MEDS: ZINC SULFATE 220 MG ( 50 ) CAPSULE PO SCH (08:42)
[2018-07-12 09:59] LABS: PLATELET ESTIMATE NORMAL
[2018-07-12 12:00] VITALS: BP 112/73
[2018-07-12 16:00] VITALS: BP 113/82
[2018-07-12 20:00] VITALS: BP 107/73
[2018-07-13] VITALS: BP 109/77
[2018-07-13 04:00] VITALS: BP 114/85
[2018-07-13] MEDS: LACTULOSE 20G/30ML UDC PO SCH ×2 (05:09→12:00)
[2018-07-13 08:00] VITALS: BP 134/72
[2018-07-13] MEDS: ZINC SULFATE 220 MG ( 50 ) CAPSULE PO SCH (08:47)
[2018-07-13] MEDS: APIXABAN 5 MG TABLET PO SCH (08:48)
[2018-07-13] MEDS: FERROUS SULFATE 325MG TABLET PO SCH (08:48)
[2018-07-13] MEDS: HYDROCODONE/ACETAMINOPHEN 5/325MG TABLET PO PRN (10:48)
[2018-07-13 11:52] VITALS: BP 128/72
[2018-07-13 12:00] VITALS: BP 126/64
== END 2018-07-13 12:21 | disposition home health service (06) | DRG 710 ==
LOC: ER 13:51 → 5WST 17:32 → ENRESERV 20:26 → 5WST 06-23 15:14 → 6EST 07-02 15:36
PROVIDERS: ADMIT Internal Medicine Nephrology; ATTEND Internal Medicine Nephrology
PROC: 30233N1 Transfusion of Nonautologous Red Blood Cells into Peripheral Vein, Percutaneous Approach (ICD-10-PCS; 2018-06-14)
PROC: 0J9P0ZZ Drainage of Left Lower Leg Subcutaneous Tissue and Fascia, Open Approach (ICD-10-PCS; principal; 2018-07-03)
DX: A41.9 Sepsis, unspecified organism (principal); I50.31 Acute diastolic (congestive) heart failure; E43 Unspecified severe protein-calorie malnutrition; I82.412 Acute embolism and thrombosis of left femoral vein; L97.929 Non-pressure chronic ulcer of unspecified part of left lower leg with unspecified severity; L03.115 Cellulitis of right lower limb; L03.116 Cellulitis of left lower limb; J03.90 Acute tonsillitis, unspecified; D50.9 Iron deficiency anemia, unspecified; N39.0 Urinary tract infection, site not specified; D25.9 Leiomyoma of uterus, unspecified; D50.0 Iron deficiency anemia secondary to blood loss (chronic); L02.416 Cutaneous abscess of left lower limb; D63.8 Anemia in other chronic diseases classified elsewhere; Z91.19 Patient's noncompliance with other medical treatment and regimen; Z95.828 Presence of other vascular implants and grafts; Z59.0 Homelessness; Z68.26 Body mass index [BMI] 26.0-26.9, adult
CPT/HCPCS: 36415; 70360; 70491; 71045; 73610; 73701; 73721; 74176; 76830; 76856; 80048; 80202; 81025; 82550; 82570; 82595; 82728; 82962; 83540; 83550; 83735; 84100; 84156; 84443; 84703; 85014; 85018; 86060; 86140; 86160; 86703; 86803; 86850; 86900; 86920; 87070; 87075; 93306; 93971; 96374; 96375; 97110; 97116; 97162; 97530; 97760; 99285; C1893; J0690; J0696; J1050; J1200; J1650; J1940; J2270; J3370; J3490; J7040; J7050; J7060; P9016; Q9967